=== PATIENT | female | born 1990 | race Caucasian/White ===

== ENCOUNTER → 2023-01-31 10:22 | Outpatient (BNVA) | payer BC, SELFPAY | PROVIDERS: Family Provider Family Medicine; PCP Family Medicine; Visit Provider Nurse Practitioner Family | DX: R07.81 Pleurodynia (principal); S29.012A Strain of muscle and tendon of back wall of thorax, initial encounter; X58.XXXA Exposure to other specified factors, initial encounter | CPT/HCPCS: 71100; 72070 ==